=== PATIENT | female | born 1990 | race African-American/Black ===

== ENCOUNTER 2017-12-19 21:48 | Emergency (ER) | payer OTHER ==
[2017-12-19 22:49] LABS: Base Excess -3.5 mEq/L (-2 - +2); Hemoglobin (Hb) 12.3 g/dL (11.7-15.5)
[2017-12-19 22:50] LABS: pH (venous) 7.49 (7.35-7.45)
[2017-12-19 22:54] LABS: Hemoglobin 11.6 g/dL (12.0-16.0); Mean Corpuscular HGB CONC 33.8 g/dL (32.0-36.0); Mean Corpuscular Hemoglobin 24.9 pg (27.0-31.0); Mean Corpuscular Volume 73.7 fl (81.0-99.0); Mean Platelet Volume 5.7 fL (7.4-10.4); Platelet Count 294 thou/uL (130-400); RBC Distribution Width 15.2 % (11.5-14.5); Red Blood Cell (RBC) Count 4.67 mill/uL (4.20-5.40); White Blood Cell (WBC) Count 8.2 thou/uL (4.8-10.8)
[2017-12-19 23:03] LABS: ALT (SGPT) 8 U/L (8-55); AST (SGOT) 13 U/L (5-34); Albumin 3.2 g/dL (3.5-5.0); Alkaline Phosphatase 94 U/L (40-150); Anion Gap 15 mmol/L (10-20); BUN (Urea Nitrogen) Less than 4 mg/dL (7.0-18.7); Bilirubin, Total 0.5 mg/dL (0.2-1.2); Calc. Creatinine Clearance 0 mL/min (70-130); Calcium 9.1 mg/dL (7.8-10.44); Carbon Dioxide 19 mmol/L (22-29); Chloride 107 mmol/L (98-107); Estimated GFR-MDRD Greater than 90; Globulin 3.4 g/dL (2.4-3.5); Glucose 138 mg/dL (70-105); Protein, Total 6.6 g/dL (6.0-8.3); Sodium 138 mmol/L (136-145)
[2017-12-19 23:04] LABS: Potassium 2.9 mmol/L (3.5-5.1)
[2017-12-19 23:07] LABS: #Eosinphils 0.1 thou/uL (0.0-0.7); #Lymphocytes 2.1 thou/uL (1.20-3.40); #Monocytes 0.5 thou/uL (0.11-0.59); #Neutrophils 5.4 thou/uL (1.40-6.50); %Basophils 0.6 % (0.0-1.0); %Eosinophils 1.7 % (0.0-10.0); %Lymphocytes 25.6 % (21.0-51.0); %Monocytes 6.2 % (0.0-10.0); %Neutrophils 65.9 % (42.0-75.0); Anisocytosis SLIGHT = 6-15 cells (100X) (0-5/hpf); MDiff Complete? YES; Microcytosis SLIGHT = 6-15 cells (100X) (0-5/hpf); PLT Morphology Comment Appears Adequate
[2017-12-19] MEDS ORDERED: Potassium Chloride 20 MEQ TAB ONE (23:08)
[2017-12-19] MEDS ORDERED: Meclizine HCl 25 MG TAB ONE (23:08)
== END 2017-12-19 23:24 | disposition home or self-care (01) ==
LOC: BURERS 21:48
DX: O99.280 Endocrine, nutritional and metabolic diseases complicating pregnancy, unspecified trimester (principal); E87.6 Hypokalemia; I49.3 Ventricular premature depolarization; E03.9 Hypothyroidism, unspecified; O99.519 Diseases of the respiratory system complicating pregnancy, unspecified trimester; J45.909 Unspecified asthma, uncomplicated; O99.350 Diseases of the nervous system complicating pregnancy, unspecified trimester; G47.30 Sleep apnea, unspecified; Z79.899 Other long term (current) drug therapy; Z79.4 Long term (current) use of insulin; Z3A.00 Weeks of gestation of pregnancy not specified
CPT/HCPCS: 36415; 80053; 82805; 85025; 93005; 94640; J7620